=== PATIENT | female | born 1965 | race Caucasian/White ===

== ENCOUNTER 2017-03-30 00:32 | Emergency (ER) | payer OTHER, SELFPAY ==
[2017-03-30 00:51] VITALS: RESP 20; O2SAT 99
[2017-03-30 01:29] LABS: RBC URINE 74 /hpf (0-3); URINE BILIRUBIN NEGATIVE (NEGATIVE); URINE BLOOD 3+ (NEGATIVE); URINE COLOR Colorless (YELLOW); URINE GLUCOSE (UA) NORMAL (Normal); URINE KETONE NEGATIVE (NEGATIVE); URINE LEUKOCYTE ESTERASE 3+ Leu/uL (Negative); URINE PROTEIN NEGATIVE (NEGATIVE); URINE UROBILINOGEN NORMAL mg/dL (0.2-1.0); WBC URINE 128 /hpf (0-5)
--- NOTE | 2017-03-30 01:35 | C.PDOC ---
History Of Present Illness 51 year old female who presents to the ER with a complaint of lower abdominal pain, dysuria, and urinary frequency for the past 3 days. Patient states she has been taking cipro, however, symptoms still persist. Denies fever, nausea, or vomiting. Time Seen by Provider: 03/30/17 01:02 Chief Complaint (Nursing): Abdominal Pain History Per: Patient History/Exam Limitations: no limitations Onset/Duration Of Symptoms: Days Current Symptoms Are (Timing): Still Present Location Of Pain/Discomfort: Suprapubic Radiation Of Pain To:: None Quality Of Discomfort: Burning Associated Symptoms: Urinary Symptoms (Dysuria, Frequency). denies: Fever, Chills, Nausea, Vomiting Exacerbating Factors: None Alleviating Factors: None Recent travel outside of the [place]: No Abnormal Vaginal Bleeding: No Past Medical History Reviewed: Historical Data, Nursing Documentation, Vital Signs Vital Signs: Last Vital Signs Temp 97.6 F 03/30/17 02:58 Pulse 69 03/30/17 02:58 Resp 20 03/30/17 02:58 BP 160/97 H 03/30/17 02:58 Pulse Ox 99 03/30/17 02:58 - Medical History PMH: Seizures Surgical History: No Surg Hx Family History: States: Unknown Family Hx - Social History Hx Alcohol Use: No Hx Substance Use: No Review Of Systems Constitutional: Negative for: Fever Gastrointestinal: Positive for: Abdominal Pain. Negative for: Nausea, Vomiting Genitourinary: Positive for: Dysuria, Frequency Physical Exam - Physical Exam Appears: Non-toxic Skin: Normal Color, Warm, Dry Head: Atraumatic, Normacephalic Oral Mucosa: Moist Chest: Symmetrical Cardiovascular: Rhythm Regular Respiratory: Normal Breath Sounds, No Rales, No Rhonchi, No Wheezing Gastrointestinal/Abdominal: Soft, Tenderness (Suprapubic) Neurological/Psych: Oriented x3, Normal Speech, Other (No focal deficits) ED Course And Treatment O2 Sat by Pulse Oximetry: 99 (Room air) Pulse Ox Interpretation: Normal Medical Decision Making Medical Decision Making: Impression: 51 year old female with a UTI. Plan: * Urinalysis * Urine culture * Pyridium * Macrobid Disposition Counseled Patient/Family Regarding: Diagnosis, Need For Followup, Rx Given - [facility]position [facility] Disposition: HOME/ ROUTINE Disposition Time: 01:30 Condition: GOOD Additional Instructions: glo lerma muestra infeccin malka antibitico dos veces al da beber james agua Vaya a cody mdico o la clnica en 2-5 lindquist sin falta, para mas evaluacin. Volver a la florentino de emergencia en cualquier momento si los sntomas persisten o empeoran. Prescriptions: Nitrofurantoin Macrocrystals [Macrobid] 1 cap PO BID #14 cap Phenazopyridine [Pyridium] 100 mg PO Q6 #9 tab Instructions: Urinary Tract Infection in Women (ED) Forms: Boxee (Welsh) Print Language: MAURITANIAN - POA Present On Arrival: None - Clinical Impression Clinical Impression: UTI (urinary tract infection) - Scribe Statement The provider has reviewed the documentation as recorded by the Scribe Declan Maradiaga All medical record entries made by the Scribe were at my direction and personally dictated by me. I have reviewed the chart and agree that the record accurately reflects my personal performance of the history, physical exam, medical decision making, and the department course for this patient. I have also personally directed, reviewed, and agree with the discharge instructions and disposition.
[2017-03-30 02:59] VITALS: BP 160/97; PULSE 69; TEMP 97.6
== END 2017-03-30 02:59 | disposition home or self-care (01) ==
LOC: C.ER 00:32
DX: N39.0 Urinary tract infection, site not specified (principal)

== ENCOUNTER 2018-08-19 08:01 | Outpatient (CLI) | payer SELFPAY | END 2018-08-19 08:02 | disposition home or self-care (01) | LOC: C.MRIC 08:01 ==

== ENCOUNTER 2018-10-28 08:08 | Outpatient (CLI) | payer OTHER, SELFPAY | END 2018-10-28 08:09 | disposition home or self-care (01) | LOC: C.USIC 08:08 ==

== ENCOUNTER 2018-10-29 08:27 | Outpatient (CLI) | payer OTHER | END 2018-10-29 08:28 | disposition home or self-care (01) | LOC: C.MRIC 08:27 | DX: M54.5 Low back pain (principal) ==